=== PATIENT | female | born 1965 | race Caucasian/White ===

== ENCOUNTER 2021-04-25 06:14 | Inpatient (IN) | payer OTHER ==
[~2021-04-25] VITALS: Ht 152.4 cm; Wt 61.2 kg
[2021-04-25] MEDS ORDERED: LIPITOR10 MG PO (06:53)
[2021-04-25] MEDS ORDERED: FLUOXETINE40 MG PO (06:54)
[2021-04-25] MEDS ORDERED: METFORMIN HYDR500 MG PO (06:54)
[2021-04-25] MEDS ORDERED: OMEPRAZOLE40 MG PO (06:55)
[2021-04-25] MEDS ORDERED: LISINOPRIL20 MG PO (06:55)
[2021-04-25 11:13] VITALS: BP 117/85
[2021-04-25 20:00] VITALS: BP 136/87
[2021-04-26 06:31] LABS: BASO # 0.1 10*3/uL (0.0-0.1); BASO % 0.9 % (0.0-1.0); EOS # 0.2 10*3/uL (0.0-0.4); EOS % 2.7 % (1.0-4.0); HEMATOCRIT 36.7 % (37.0-47.0); LYMPH # 3.3 10*3/uL (1.3-4.4); LYMPH % 49.7 % (27.0-41.0); MEAN CELL VOLUME 88.2 fl (81.0-99.0); MEAN CORPUSCULAR HGB 29.3 pg (27.0-31.0); MEAN CORPUSCULAR HGB CONC 33.2 g/dl (33.0-37.0); MEAN PLATELET VOLUME 10.9 fl (9.6-12.3); MONO # 0.5 10*3/uL (0.1-1.0); NEUT # 2.6 10*3/uL (2.3-7.9); NEUT % 39.2 % (47.0-73.0); PLATELET COUNT AUTOMATED 261 10*3/uL (130-400); RED BLOOD COUNT 4.16 10*6/uL (4.10-5.10); RED CELL DISTRI WIDTH 14.8 % (0-14.5); WHITE BLOOD COUNT 6.6 10*3/uL (4.8-10.8)
[2021-04-26 06:49] LABS: ALKALINE PHOSPHATASE 148 U/L (45-117); BUN 14 mg/dl (7-24); CHLORIDE 105 mmol/L (98-107); CHOLESTEROL 182 mg/dL (<200); CREATININE 1.08 mg/dL (0.55-1.02); LDL CHOLESTEROL 107 mg/dL (9-159); POTASSIUM 3.8 mmol/L (3.5-5.1); SGOT/AST 52 IU/L (3-35); SGPT/ALT 59 U/L (12-78); SODIUM 138 mmol/L (136-145); TRIGLYCERIDES 138 mg/dl (<150)
[2021-04-26 08:00] VITALS: BP 118/82
[2021-04-26 08:21] LABS: VITAMIN D, 25-HYDROXY 24.8 ng/mL (30-100)
[2021-04-26 20:00] VITALS: BP 108/64
[2021-04-27 08:00] VITALS: BP 102/60
[2021-04-27] MEDS ORDERED: PALIPERIDONE ER6 MG PO (11:01)
[2021-04-27] MEDS ORDERED: VITAMIN D3125 MC1 PO (11:01)
[2021-04-27 20:00] VITALS: BP 120/60
[2021-04-28 07:54] VITALS: BP 95/49
[2021-04-28 19:31] VITALS: BP 109/71
[2021-04-29 07:26] VITALS: BP 106/68
[2021-04-29 20:00] VITALS: BP 118/72
[2021-04-30 08:00] VITALS: BP 108/79
[2021-04-30 19:40] VITALS: BP 111/78
[2021-05-01 07:56] VITALS: BP 110/80
[2021-05-01] MEDS ORDERED: MIRTAZAPINE15 M2 PO (10:26)
[2021-05-01] MEDS ORDERED: PALIPERIDONE ER6 MG PO (10:26)
== END 2021-05-01 13:26 | disposition home or self-care (01) | DRG 885 ==
LOC: 3N 06:14
PROVIDERS: ADMIT Psychiatry & Neurology Psychiatry; ATTEND Psychiatry & Neurology Psychiatry
DX: F33.3 Major depressive disorder, recurrent, severe with psychotic symptoms (principal); F23 Brief psychotic disorder; F41.9 Anxiety disorder, unspecified; E11.9 Type 2 diabetes mellitus without complications; E78.5 Hyperlipidemia, unspecified; I10 Essential (primary) hypertension; K21.9 Gastro-esophageal reflux disease without esophagitis; Z88.0 Allergy status to penicillin; Z88.6 Allergy status to analgesic agent; Z88.8 Allergy status to other drugs, medicaments and biological substances; Z79.899 Other long term (current) drug therapy

== ENCOUNTER 2021-07-17 10:04 | Inpatient (IN) | payer OTHER ==
[~2021-07-17] VITALS: Ht 149.8 cm; Wt 60.8 kg
[~2021-07-17 10:04] MED LIST: FLUOXETINE40 MG PO; LIPITOR10 MG PO; LISINOPRIL20 MG PO; METFORMIN HYDR500 MG PO; MIRTAZAPINE15 M2 PO; OMEPRAZOLE40 MG PO; PALIPERIDONE ER6 MG PO; VITAMIN D3125 MC1 PO
[2021-07-17 10:16] VITALS: BP 151/100
[2021-07-17 10:54] LABS: BASO # 0.1 10*3/uL (0.0-0.1); BASO % 0.6 % (0.0-1.0); EOS % 0.5 % (1.0-4.0); HEMATOCRIT 47.9 % (37.0-47.0); LYMPH # 1.8 10*3/uL (1.3-4.4); LYMPH % 21.5 % (27.0-41.0); MEAN CELL VOLUME 87.6 fl (81.0-99.0); MEAN CORPUSCULAR HGB 29.4 pg (27.0-31.0); MEAN CORPUSCULAR HGB CONC 33.6 g/dl (33.0-37.0); MEAN PLATELET VOLUME 9.6 fl (9.6-12.3); MONO # 0.6 10*3/uL (0.1-1.0); MONO % 7.2 % (3.0-9.0); NEUT # 5.8 10*3/uL (2.3-7.9); PLATELET COUNT AUTOMATED 382 10*3/uL (130-400); RED BLOOD COUNT 5.47 10*6/uL (4.10-5.10); RED CELL DISTRI WIDTH 14.3 % (0-14.5); WHITE BLOOD COUNT 8.3 10*3/uL (4.8-10.8)
[2021-07-17 11:11] LABS: ALBUMIN 3.9 gm/dl (3.1-4.5); ALKALINE PHOSPHATASE 164 U/L (45-117); BUN 17 mg/dl (7-24); CHLORIDE 100 mmol/L (98-107); CREATININE 1.13 mg/dL (0.55-1.02); POTASSIUM 4.6 mmol/L (3.5-5.1); SGOT/AST 19 IU/L (3-35); SGPT/ALT 20 U/L (12-78); SODIUM 132 mmol/L (136-145); TOTAL PROTEIN 8.2 gm/dL (6.4-8.2)
[2021-07-17 12:21] LABS: BILIRUBIN Negative (Negative); BLOOD Trace-Lysed (Negative); CLARITY Cloudy (Clear); COLOR Yellow (Yellow); GLUCOSE Negative (Negative); KETONE 4+ (Negative); LEUKO ESTERASE Negative (Negative); NITRITE Negative (Negative); UROBILINOGEN 0.2 E.U./dl (0.0-1.0)
[2021-07-17 12:29] LABS: URINE AMPHETAMINES < 1000 (1000ng/ml); URINE BARBITURATES < 200 (200ng/ml); URINE BENZODIAZEPINES < 200 (200ng/ml); URINE CANNABINOIDS (THC) < 50 (50ng/ml); URINE COCAINE < 300 (300ng/ml); URINE METHADONE < 300 (300ng/ml); URINE OPIATES < 300 (300ng/ml)
[2021-07-17 12:33] LABS: URINE PHENCYCLIDINE < 25 (25ng/ml)
[2021-07-17 15:30] VITALS: BP 136/92
[2021-07-17 18:12] VITALS: BP 129/89
[2021-07-17 20:00] VITALS: BP 106/74
[2021-07-18 06:48] LABS: THYROID STIM HORMONE (HS) 4.32 uIU/ml (0.358-4.75)
[2021-07-18 07:49] VITALS: BP 78/60
[2021-07-18 08:06] LABS: VITAMIN D, 25-HYDROXY 15.7 ng/mL (30-100)
[2021-07-18 20:00] VITALS: BP 102/65
[2021-07-19 07:59] VITALS: BP 104/78
[2021-07-19 20:00] VITALS: BP 116/78
[2021-07-20 07:38] VITALS: BP 98/64
[2021-07-20 09:14] VITALS: BP 116/70
[2021-07-20 20:00] VITALS: BP 90/56
[2021-07-21 07:33] VITALS: BP 104/72
[2021-07-21 20:00] VITALS: BP 122/73
[2021-07-22 08:06] VITALS: BP 143/88
[2021-07-22 19:32] VITALS: BP 110/82
[2021-07-23 08:00] VITALS: BP 121/77
[2021-07-23 20:00] VITALS: BP 133/90
[2021-07-24 08:00] VITALS: BP 129/83
[2021-07-24 20:00] VITALS: BP 104/71
[2021-07-25 08:00] VITALS: BP 125/81
[2021-07-25] MEDS ORDERED: PALIPERIDONE ER3 MG PO (10:24)
[2021-07-25] MEDS ORDERED: MIRTAZAPINE15 M2 PO (10:24)
[2021-07-25] MEDS ORDERED: INVEGA SUSTENN156 MG IM (10:24)
[2021-07-25 10:33] LABS: BASO # 0.1 10*3/uL (0.0-0.1); BASO % 0.9 % (0.0-1.0); EOS # 0.2 10*3/uL (0.0-0.4); EOS % 2.9 % (1.0-4.0); HEMATOCRIT 34.4 % (37.0-47.0); LYMPH # 2.2 10*3/uL (1.3-4.4); LYMPH % 28.5 % (27.0-41.0); MEAN CELL VOLUME 88.4 fl (81.0-99.0); MEAN CORPUSCULAR HGB CONC 32.8 g/dl (33.0-37.0); MEAN PLATELET VOLUME 10.1 fl (9.6-12.3); MONO # 0.7 10*3/uL (0.1-1.0); MONO % 9.2 % (3.0-9.0); NEUT # 4.4 10*3/uL (2.3-7.9); NEUT % 56.7 % (47.0-73.0); PLATELET COUNT AUTOMATED 276 10*3/uL (130-400); RED BLOOD COUNT 3.89 10*6/uL (4.10-5.10); RED CELL DISTRI WIDTH 14.9 % (0-14.5); WHITE BLOOD COUNT 7.8 10*3/uL (4.8-10.8)
[2021-07-25 10:47] LABS: ALBUMIN 2.8 gm/dl (3.1-4.5); ALKALINE PHOSPHATASE 126 U/L (45-117); BUN 16 mg/dl (7-24); CHLORIDE 104 mmol/L (98-107); CREATININE 0.89 mg/dL (0.55-1.02); POTASSIUM 4.2 mmol/L (3.5-5.1); SGOT/AST 31 IU/L (3-35); SGPT/ALT 37 U/L (12-78); SODIUM 139 mmol/L (136-145); TOTAL PROTEIN 6.2 gm/dL (6.4-8.2)
[2021-07-25] MEDS ORDERED: LISINOPRIL5 MG PO (17:51)
[2021-07-25 20:00] VITALS: BP 131/68
[2021-07-26 08:29] VITALS: BP 128/82
== END 2021-07-26 10:03 | DRG 885 ==
LOC: ED 10:04 → 3N 17:48
PROVIDERS: Counselor Professional; Internal Medicine; ADMIT Psychiatry & Neurology Psychiatry; ATTEND Psychiatry & Neurology Psychiatry
DX: F25.9 Schizoaffective disorder, unspecified (principal); N18.31 Chronic kidney disease, stage 3a; N17.9 Acute kidney failure, unspecified; F23 Brief psychotic disorder; E87.1 Hypo-osmolality and hyponatremia; Z20.822 Contact with and (suspected) exposure to COVID-19; F41.9 Anxiety disorder, unspecified; I12.9 Hypertensive chronic kidney disease with stage 1 through stage 4 chronic kidney disease, or unspecified chronic kidney disease; D75.1 Secondary polycythemia; E55.9 Vitamin D deficiency, unspecified; R82.4 Acetonuria; K21.9 Gastro-esophageal reflux disease without esophagitis; E78.5 Hyperlipidemia, unspecified; E11.9 Type 2 diabetes mellitus without complications; D64.9 Anemia, unspecified; Z79.899 Other long term (current) drug therapy; Z88.0 Allergy status to penicillin; Z88.8 Allergy status to other drugs, medicaments and biological substances; Z88.1 Allergy status to other antibiotic agents

== ENCOUNTER 2021-08-21 13:34 | Inpatient (IN) | payer OTHER ==
[~2021-08-21] VITALS: Ht 152.4 cm; Wt 62.6 kg
[~2021-08-21 13:34] MED LIST changes: +INVEGA SUSTENN156 MG IM; +LISINOPRIL5 MG PO; +PALIPERIDONE ER3 MG PO
[2021-08-21] MEDS ORDERED: TYLENOL325 M1 PO (15:21)
[2021-08-21] MEDS ORDERED: DULCOLAX10 M1 R (15:23)
[2021-08-21] MEDS ORDERED: ZESTRIL20 MG PO (15:24)
[2021-08-21] MEDS ORDERED: FLEET ENEMA 13133 ML R (15:24)
[2021-08-21] MEDS ORDERED: MILK OF MA400 MG/51 PO (15:25)
[2021-08-21 21:05] VITALS: BP 132/94
[2021-08-22 06:29] LABS: BASO # 0.1 10*3/uL (0.0-0.1); BASO % 0.9 % (0.0-1.0); EOS # 0.1 10*3/uL (0.0-0.4); HEMATOCRIT 36.7 % (37.0-47.0); LYMPH % 45.8 % (27.0-41.0); MEAN CELL VOLUME 89.1 fl (81.0-99.0); MEAN CORPUSCULAR HGB 29.1 pg (27.0-31.0); MEAN CORPUSCULAR HGB CONC 32.7 g/dl (33.0-37.0); MEAN PLATELET VOLUME 9.7 fl (9.6-12.3); MONO # 0.6 10*3/uL (0.1-1.0); MONO % 9.3 % (3.0-9.0); NEUT # 2.7 10*3/uL (2.3-7.9); NEUT % 41.7 % (47.0-73.0); PLATELET COUNT AUTOMATED 327 10*3/uL (130-400); RED BLOOD COUNT 4.12 10*6/uL (4.10-5.10); RED CELL DISTRI WIDTH 14.4 % (0-14.5); WHITE BLOOD COUNT 6.5 10*3/uL (4.8-10.8)
[2021-08-22 06:38] LABS: CHLORIDE 107 mmol/L (98-107); POTASSIUM 3.4 mmol/L (3.5-5.1); SODIUM 141 mmol/L (136-145)
[2021-08-22 06:56] LABS: ALBUMIN 3.4 gm/dl (3.1-4.5); ALKALINE PHOSPHATASE 101 U/L (45-117); BUN 20 mg/dl (7-24); CHOLESTEROL 138 mg/dL (<200); LDL CHOLESTEROL 53 mg/dL (9-159); SGOT/AST 7 IU/L (3-35); SGPT/ALT 15 U/L (12-78); TOTAL PROTEIN 6.5 gm/dL (6.4-8.2); TRIGLYCERIDES 116 mg/dl (<150)
[2021-08-22 08:21] VITALS: BP 124/79
[2021-08-22 11:33] LABS: BILIRUBIN Negative (Negative); BLOOD Negative (Negative); CLARITY Clear (Clear); COLOR Yellow (Yellow); GLUCOSE Negative (Negative); KETONE Negative (Negative); LEUKO ESTERASE 2+ (Negative); NITRITE Negative (Negative); SPECIFIC GRAVITY 1.015 (1.001-1.030); UROBILINOGEN 0.2 E.U./dl (0.0-1.0)
[2021-08-22 11:50] LABS: BACTERIA 2+; WBC 41-50 wbc/hpf (0-5)
[2021-08-22 20:00] VITALS: BP 104/66
[2021-08-23 08:08] VITALS: BP 108/52
[2021-08-23 20:00] VITALS: BP 111/77
[2021-08-24 08:00] VITALS: BP 92/64
[2021-08-24 20:00] VITALS: BP 96/54
[2021-08-25 07:24] LABS: CHLORIDE 105 mmol/L (98-107); POTASSIUM 3.9 mmol/L (3.5-5.1); SODIUM 137 mmol/L (136-145)
[2021-08-25 07:34] LABS: BUN 22 mg/dl (7-24); CREATININE 0.61 mg/dL (0.55-1.02)
[2021-08-25 07:49] VITALS: BP 94/64
[2021-08-25 20:00] VITALS: BP 118/76
[2021-08-26 07:31] VITALS: BP 98/58
== END 2021-08-26 19:03 | disposition short-term general hospital (02) | DRG 885 ==
LOC: 3N 13:34
PROVIDERS: Internal Medicine; ADMIT Psychiatry & Neurology Psychiatry; ATTEND Psychiatry & Neurology Psychiatry
DX: F25.1 Schizoaffective disorder, depressive type (principal); R45.851 Suicidal ideations; K21.9 Gastro-esophageal reflux disease without esophagitis; F41.9 Anxiety disorder, unspecified; E55.9 Vitamin D deficiency, unspecified; Z20.822 Contact with and (suspected) exposure to COVID-19; I10 Essential (primary) hypertension; E78.5 Hyperlipidemia, unspecified; E11.69 Type 2 diabetes mellitus with other specified complication; R00.0 Tachycardia, unspecified; Z88.0 Allergy status to penicillin; Z88.8 Allergy status to other drugs, medicaments and biological substances; Z90.49 Acquired absence of other specified parts of digestive tract; Z90.710 Acquired absence of both cervix and uterus; Z79.899 Other long term (current) drug therapy

== ENCOUNTER 2021-08-26 19:17 | Inpatient (IN) | payer OTHER ==
[~2021-08-26] VITALS: Ht 152.4 cm; Wt 65.6 kg
[~2021-08-26 19:17] MED LIST changes: +DULCOLAX10 M1 R; +FLEET ENEMA 13133 ML R; +MILK OF MA400 MG/51 PO; +TYLENOL325 M1 PO; +ZESTRIL20 MG PO
[2021-08-26 23:19] VITALS: BP 103/79
[2021-08-26 23:20] VITALS: BP 103/79
[2021-08-27] VITALS: BP 103/79
[2021-08-27 06:42] LABS: CREATININE 0.69 mg/dL (0.55-1.02)
[2021-08-27 06:48] LABS: BASO % 0.6 % (0.0-1.0); EOS # 0.3 10*3/uL (0.0-0.4); EOS % 4.8 % (1.0-4.0); LYMPH # 2.6 10*3/uL (1.3-4.4); LYMPH % 41.8 % (27.0-41.0); MEAN CELL VOLUME 87.6 fl (81.0-99.0); MEAN CORPUSCULAR HGB CONC 33.1 g/dl (33.0-37.0); MEAN PLATELET VOLUME 10.1 fl (9.6-12.3); MONO # 0.4 10*3/uL (0.1-1.0); MONO % 6.9 % (3.0-9.0); NEUT # 2.9 10*3/uL (2.3-7.9); NEUT % 45.7 % (47.0-73.0); PLATELET COUNT AUTOMATED 310 10*3/uL (130-400); RED BLOOD COUNT 4.11 10*6/uL (4.10-5.10); RED CELL DISTRI WIDTH 14.3 % (0-14.5); WHITE BLOOD COUNT 6.3 10*3/uL (4.8-10.8)
[2021-08-27 09:01] VITALS: BP 110/87
[2021-08-27 12:02] VITALS: BP 103/76
[2021-08-27 15:20] VITALS: BP 107/70
[2021-08-27 20:00] VITALS: BP 80/57
[2021-08-28] VITALS: BP 94/65
[2021-08-28 08:00] VITALS: BP 102/70
[2021-08-28] MEDS ORDERED: TRINTELLIX20 MG PO (10:37)
== END 2021-08-28 11:46 | DRG 880 ==
LOC: 5E 19:17
PROVIDERS: ADMIT Emergency Medicine; ATTEND Emergency Medicine
DX: R45.851 Suicidal ideations (principal); K21.9 Gastro-esophageal reflux disease without esophagitis; D64.9 Anemia, unspecified; N18.30 Chronic kidney disease, stage 3 unspecified; E55.9 Vitamin D deficiency, unspecified; F41.9 Anxiety disorder, unspecified; E11.65 Type 2 diabetes mellitus with hyperglycemia; F25.1 Schizoaffective disorder, depressive type; I12.9 Hypertensive chronic kidney disease with stage 1 through stage 4 chronic kidney disease, or unspecified chronic kidney disease; E11.22 Type 2 diabetes mellitus with diabetic chronic kidney disease; E78.5 Hyperlipidemia, unspecified; Z90.710 Acquired absence of both cervix and uterus; Z90.49 Acquired absence of other specified parts of digestive tract; Z88.0 Allergy status to penicillin; Z88.5 Allergy status to narcotic agent; Z79.1 Long term (current) use of non-steroidal anti-inflammatories (NSAID); Z79.899 Other long term (current) drug therapy

== ENCOUNTER 2021-08-28 10:02 | Inpatient (IN) | payer OTHER ==
[~2021-08-28] VITALS: Ht 152.4 cm; Wt 65.4 kg
[2021-08-28] MEDS ORDERED: TRINTELLIX20 MG PO (10:37)
[2021-08-28 12:35] VITALS: BP 103/68
[2021-08-28 20:00] VITALS: BP 92/60
[2021-08-29 08:00] VITALS: BP 99/66
[2021-08-29 20:00] VITALS: BP 121/79
[2021-08-30 08:00] VITALS: BP 115/73
[2021-08-30 20:00] VITALS: BP 102/48; BP 96/68
[2021-08-31 08:00] VITALS: BP 113/72
[2021-08-31 20:00] VITALS: BP 100/57
[2021-09-01 07:40] VITALS: BP 109/60
[2021-09-01 20:00] VITALS: BP 103/53
[2021-09-02 07:49] VITALS: BP 107/62
[2021-09-02 20:00] VITALS: BP 100/70
[2021-09-03 07:55] VITALS: BP 102/58
[2021-09-03 20:00] VITALS: BP 102/74
[2021-09-04 08:13] VITALS: BP 104/58
[2021-09-04] MEDS ORDERED: INVEGA SUSTENN156 MG IM (08:44)
[2021-09-04 20:00] VITALS: BP 109/70
[2021-09-05 08:01] VITALS: BP 101/65
[2021-09-05 20:00] VITALS: BP 92/58
[2021-09-06 08:00] VITALS: BP 96/59
[2021-09-06 20:00] VITALS: BP 98/62
[2021-09-07 08:00] VITALS: BP 104/61
[2021-09-07 20:00] VITALS: BP 120/82
== END 2021-09-07 22:45 | DRG 885 ==
LOC: 3N 10:02
PROVIDERS: ADMIT Psychiatry & Neurology Psychiatry; ATTEND Psychiatry & Neurology Psychiatry
DX: F25.1 Schizoaffective disorder, depressive type (principal); N18.30 Chronic kidney disease, stage 3 unspecified; E11.65 Type 2 diabetes mellitus with hyperglycemia; R45.851 Suicidal ideations; N30.00 Acute cystitis without hematuria; D64.9 Anemia, unspecified; K21.9 Gastro-esophageal reflux disease without esophagitis; I12.9 Hypertensive chronic kidney disease with stage 1 through stage 4 chronic kidney disease, or unspecified chronic kidney disease; E78.5 Hyperlipidemia, unspecified; E11.22 Type 2 diabetes mellitus with diabetic chronic kidney disease; F41.9 Anxiety disorder, unspecified; E55.9 Vitamin D deficiency, unspecified; Z88.0 Allergy status to penicillin; Z88.5 Allergy status to narcotic agent; Z88.8 Allergy status to other drugs, medicaments and biological substances; Z90.49 Acquired absence of other specified parts of digestive tract; Z90.710 Acquired absence of both cervix and uterus